=== PATIENT | male | born 1940 | race Caucasian/White ===

== ENCOUNTER → 2022-10-01 | Outpatient (CLI) | payer OTHER | END | disposition home or self-care (01) | LOC: RAH 10:46 | PROVIDERS: ATTEND Internal Medicine | DX: M19.011 Primary osteoarthritis, right shoulder (principal); M75.101 Unspecified rotator cuff tear or rupture of right shoulder, not specified as traumatic | CPT/HCPCS: 73030 ==

== ENCOUNTER → 2023-07-23 | Outpatient (CLI) | payer OTHER | END | disposition home or self-care (01) | LOC: RAH 11:08 | PROVIDERS: ATTEND Neurological Surgery | DX: M48.54XA Collapsed vertebra, not elsewhere classified, thoracic region, initial encounter for fracture (principal); M54.31 Sciatica, right side; M54.50 Low back pain, unspecified; M47.816 Spondylosis without myelopathy or radiculopathy, lumbar region; M48.07 Spinal stenosis, lumbosacral region; M51.36 Other intervertebral disc degeneration, lumbar region | CPT/HCPCS: 72148 ==

== ENCOUNTER 2024-08-19 10:47 | Emergency (ER) | payer OTHER ==
[~2024-08-19] VITALS: Ht 172.7 cm; Wt 71.2 kg
[2024-08-19 12:45] LABS: BASOPHILS # (AUTO) 0.04 K/uL (0.00-0.20); BASOPHILS % (AUTO) 0.5 % (0.0-5.0); EOSINOPHILS # (AUTO) 0.01 K/uL (0.00-0.70); EOSINOPHILS % (AUTO) 0.1 % (0.0-8.0); HEMATOCRIT 38.3 % (42-54); IMMATURE GRANULOCYTE ABSOLUTE 0.08 K/uL (0-1); LYMPHOCYTES # (AUTO) 0.3 K/uL (1.0-4.8); LYMPHOCYTES % (AUTO) 3.8 % (21.0-51.0); MEAN CORPUSCULAR HEMOGLOBIN 34.9 pg (27.0-33.0); MEAN CORPUSCULAR HGB CONC 33.4 g/dL (32.0-36.0); MEAN CORPUSCULAR VOLUME 104.4 fL (79-99); MONOCYTES # (AUTO) 0.6 K/uL (0.1-1.0); MONOCYTES % (AUTO) 7.4 % (3.0-13.0); NEUTROPHILS # (AUTO) 7.4 K/uL (1.8-7.7); NEUTROPHILS % (AUTO) 87.3 % (40.0-77.0); PLATELET COUNT (AUTO) 205 K/uL (130-400); RED BLOOD CELL COUNT(AUTO) 3.67 MIL/uL (4.50-6.20); RED CELL DISTRIBUTION WIDTH 13.2 % (11.0-15.5); WHITE BLOOD COUNT (AUTO) 8.5 K/uL (4.8-10.8)
[2024-08-19 12:53] LABS: CREATININE 0.9 mg/dL (0.5-1.3); POTASSIUM 4.3 mmol/L (3.5-5.1)
--- NOTE | 2024-08-19 13:07 | ERN ---
General Chief Complaint: Mechanical Fall Stated Complaint: RT HIP PAIN S/P FALL 4 DAYS AGO Time Seen by MD: 10:48 Source: patient History of Present Illness Initial Comments Patient is an 84-year-old gentleman coming in complaining of right hip pain. Per patient he has strain do right he had four days ago pain since then. But states this patient also states that he had back surgery secondary to another time and he was ago. Allergies: Coded Allergies: No Known Drug Allergies (Unverified Allergy, Unknown, 08/19/24) Past Medical History Past Medical History: High Cholesterol, Hypertension Medical History Other: PSORIASIS Past Surgical History: Other ROS Dictation CONSTITUTIONAL: No chills, no fever, no weakness, no diaphoresis, no malaise. HEAD/FACE: No signs of trauma. EENT: No eye pain, no blurred vision, no tearing, no double vision, no ear pain, no ear discharge, no nose pain, no nasal congestion, no throat pain, no throat swelling, no mouth pain. RESPIRATORY: No cough, no orthopnea, no SOB, no stridor, no wheezing. CARDIOVASCULAR: No chest pain, no edema, no palpitations, no syncope. GASTROINTESTINAL/ABDOMINAL: No abdominal pain, no constipation, no diarrhea, no nausea, no vomiting. GENITOURINARY: No abnormal discharge, no dysuria, no frequent urination, no hematuria. No complaints of pain in the genitals. MUSCULOSKELETAL: No back pain, no gout, no joint pain, no joint swelling, muscle pain, muscle stiffness, no neck pain. INTEGUMENTARY: No change in color, no change in hair/nails, no dryness, no lesion, no lumps, no rash. NEUROLOGICAL/PSYCH: No anxiety, not depressed, no emotional problem, no headache, no numbness, no pre-existing deficit, no history of seizures, no tremors, no weakness. HEMATOLOGIC/LYMPHATIC: Not anemic, no history of blood clots, no apparent bleeding, no bruising, glands not swollen. All Systems Negative, Except as Noted. Physical Exam Physical Exam Dictation VITAL SIGNS: Reviewed. GENERAL APPEARANCE: Alert, oriented x3, no acute distress, obese. HEAD AND FACE: Non-traumatic. EYES: PERRL, pink conjunctivas, eyelid no trauma, anterior chamber clear. EARS: Pinnas intact and no signs of trauma or erythema. Ear canals clear and no discharge. TMs no erythema. NOSE: No discharge, no bleeding. OROPHARYNX: Mouth normal, teeth no caries, tongue pink. Pharynx clear, no erythema. Tonsils no exudates, no abscesses noted. Mucous membrane moist. NECK: Supple, non-tender, no thyromegaly, no masses, no JVD, no bruits. BREAST: Deferred. CHEST: No tenderness, no crepitus, no paradoxical movement, no retractions. LUNGS: Clear, well-ventilated, symmetric, no rales, no wheezing, no rhonchi, no stridor, good breath sounds bilaterally. HEART: Regular rate, regular rhythm, no murmur, no gallops. VASCULAR: No peripheral edema. ABDOMEN: Soft, positive bowel sounds, nondistended, no guarding, nontender, no rebound, no masses no hepatomegaly, no splenomegaly, no Gonzales's sign, no hernias. RECTAL: Deferred. GENITAL: Deferred. NEUROLOGICAL: Normal speech, gross motor function intact, gross sensory function intact. MUSCULOSKELETAL: Neck nontender, full range of motion, back nontender, full range of motion. EXTREMITIES: Nontender, full range of motion. Right hip pain on palpation Results Laboratory and Microbiology Lab and Micro Result Laboratory Tests Test 08/19/24 12:20 White Blood Count 8.5 K/uL (4.8-10.8) Red Blood Count 3.67 MIL/uL (4.50-6.20) L Hemoglobin 12.8 g/dL (14.0-18.0) L Hematocrit 38.3 % (42-54) L Mean Corpuscular Volume 104.4 fL (79-99) H Mean Corpuscular Hemoglobin 34.9 pg (27.0-33.0) H Mean Corpuscular Hemoglobin Concent 33.4 g/dL (32.0-36.0) Red Cell Distribution Width 13.2 % (11.0-15.5) Platelet Count 205 K/uL (130-400) Mean Platelet Volume 10.1 fL (7.5-10.5) Immature Granulocyte % (Auto) 0.9 % (0-1) Neutrophils (%) (Auto) 87.3 % (40.0-77.0) H Lymphocytes (%) (Auto) 3.8 % (21.0-51.0) L Monocytes (%) (Auto) 7.4 % (3.0-13.0) Eosinophils (%) (Auto) 0.1 % (0.0-8.0) Basophils (%) (Auto) 0.5 % (0.0-5.0) Neutrophils # (Auto) 7.4 K/uL (1.8-7.7) Lymphocytes # (Auto) 0.3 K/uL (1.0-4.8) L Monocytes # (Auto) 0.6 K/uL (0.1-1.0) Eosinophils # (Auto) 0.01 K/uL (0.00-0.70) Basophils # (Auto) 0.04 K/uL (0.00-0.20) Absolute Immature Granulocyte (auto 0.08 K/uL (0-1) Nucleated Red Blood Cells 0.0 % (0.0-0.19) White Cell Morphology Comment See comments Sodium Level 139 mmol/L (136-145) Potassium Level 4.3 mmol/L (3.5-5.1) Chloride Level 98 mmol/L (101-111) L Carbon Dioxide Level 29 mmol/L (21-32) Blood Urea Nitrogen 17 mg/dL (7-18) Creatinine 0.9 mg/dL (0.5-1.3) Glomerular Filtration Rate Calc 84 mL/min (>90) Random Glucose 100 mg/dL (70-105) Total Calcium 9.2 mg/dL (8.5-10.1) Labs Reviewed?: Yes EKG/XRAY/US/CT/MRI CT Scan Comment [place] [id number] [address] [id number] IMAGING REPORT Signed PATIENT: GITA RODRIGUEZ MR#: [id number] : 1940 SEX: M AGE: 84 LOCATION: [facility] ORDER 58 STATUS: REG ER REPORT#: [id number] SERVICE 58 REASON: rlq pain ORDERING PHYSICIAN: AMA MYRICK MD PROCEDURE: ABD PEL W - CT ABDOMEN/PELVIS W/CONTRAST CT ABDOMEN WITH CONTRAST. CT PELVIS WITH CONTRAST INDICATION: Right lower abdominal pain TECHNIQUE: Routine transaxial images using 5 mm slice thickness were obtained after the intravenous infusion of 75 mL of Omnipaque 350 without adverse effects. Oral contrast was not administered. Rectal contrast was not administered. Coronal and sagittal reformatted images acquired for interpretation. CT was performed with one or more of the following dose reduction techniques: Automated exposure control, adjustment of the mA and/or kV according to patient size, or use of iterative reconstruction technique. COMPARISON: None FINDINGS: ABDOMEN: Heart size is normal. Coronary arterial wall calcific plaque noted. Trace right greater than left pleural fluid with subjacent passive opacities. The liver is normal in size and smooth in contour without lesions or biliary duct dilation. The spleen is normal in size without lesions. Miniscule splenic calcifications likely related to prior granulomatous disease process. The gallbladder appears normal. The pancreas appears normal without pancreatic duct dilation. The adrenal glands appear normal. 1.1 cm simple cyst at the upper pole of the right kidney. Additional miniscule simple cysts scattered throughout both kidneys. 0.3 cm nonobstructing calculus at the midportion of the left kidney. Cortical nephrograms are symmetric and normal in appearance bilaterally. No evidence for intra-abdominal free air or organized fluid collection. No retrocrural, intraabdominal, or retroperitoneal lymphadenopathy identified. Mild calcific plaque is noted along the abdominal aortic and iliac vessel holland without aneurysmal dilation or dissection. PELVIS: No evidence for free air or organized pelvic fluid collection. No significant pelvic adenopathy detected. Moderate proximal colonic stool burden. Terminal ileum appears normal. The appendix appears normal. 5.3 cm aggregate of two adjacent diverticula arises posteriorly to the right off the floor of the urinary bladder, and smaller left-sided diverticula measuring 1.9 cm contains layering calcifications with only punctate within the larger diverticulum on the right. The urinary bladder appears unremarkable. Hyperextension injury at the T10-T11 level, the disc space which is widened anteriorly up to 1.7 cm, and transverse fracture line courses through the inferior T10 vertebral body on the right and also through the superior T11 vertebral body on the left with extension into the posterior elements. Moderate to severe central canal stenosis noted at the same level, and intraspinal swelling and/or hemorrhage may be present. Chronic moderate to severe T12 vertebral body compression deformity. Bilateral sacroiliac joint fusion. IMPRESSION: 1. Hyperextension injury at the T10-T11 level, the disc space which is widened anteriorly up to 1.7 cm, and transverse fracture line courses through the inferior T10 vertebral body on the right and also through the superior T11 vertebral body on the left with extension into the posterior elements. Moderate to severe central canal stenosis noted at the same level, and intraspinal swelling and/or hemorrhage may be present. 2. Subcentimeter nonobstructing left renal stone. 5.3 cm aggregate of two adjacent diverticula arises posteriorly to the right off the floor of the urinary bladder, and smaller left-sided diverticula measuring 1.9 cm contains layering calcifications with only punctate within the larger diverticulum on the right. 3. Trace right greater than left pleural effusions with subjacent passive atelectasis. DICTATED BY: CARISSA DURHAM MD DATE: 08/19/24 1625 ELECTRONICALLY SIGNED BY: CARISSA DURHAM MD DATE: 08/19/24 1633 [facility] MDM: Differential diagnosis: Chronic back pain with surgery in the past, osteoarthritis of the hips, kidney stone, Patient is a an 84-year-old male coming in to be evaluated for right hip pain. Patient states that the pain has been ongoing for one week. He states that he has had similar pain like that in the past but recently got worse. CT was performed to rule out any abdominal pathology. Patient does have chronic changes of the spine and patient did disclose that he had surgery in the past. Long with this patient also was found have kidney stones and bladder diverticula . Patient also was found with increased stool burden suggestive constipation and hips seem osteoarthritic. Patient will be discharged in stable condition with diagnosis of osteoarthritis of the hips as well as constipation. ED Course Orders Procedure Category Date Status Time Cbc With Differential LAB 08/19/24 Complete 11:10 Basic Metabolic Panel LAB 08/19/24 Complete 11:10 Ct Abdomen/Pelvis CT 08/19/24 Resulted W/Contrast 12:59 Iohexol (Omnipaque) PHA 08/19/24 Complete 13:24 Current Medications Medications (Trade) Dose Ordered Sig/Suki Route PRN Reason Start Time Stop Time Status Last Admin Dose Admin Iohexol (Omnipaque) 75 ml STK-MED ONCE IV 08/19/24 13:24 08/19/24 13:24 DC Vital Signs Date Time Temp Pulse Resp B/P (MAP) Pulse Ox O2 Delivery O2 Flow Rate FiO2 08/19/24 15:37 98.1 100 16 148/82 95 Room Air* 0 21 08/19/24 10:48 98.1 100 16 148/82 95 Room Air 0 DX & DISP Disposition: Discharge Departure Impression: 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 TAKE MEDICATIONS DIRECTED HERE IN THE EMERGENCY ROOM. OKAY TO CONTINUE HOME MEDICATIONS UNLESS OTHERWISE DISCUSSED DURING YOUR VISIT IN THE EMERGENCY ROOM TODAY. RETURN TO YOUR NEAREST EMERGENCY ROOM IF SYMPTOMS WORSEN OR IF THERE IS NO IMPROVEMENT. CALL 911 IF YOU NEED IMMEDIATE ASSISTANCE. TAKE TYLENOL [id number] NEEDED AND IF NO CONTRAINDICATIONS ARE PRESENT. INCREASE ORAL HYDRATION. A WOUND CULTURE OR URINE CULTURE WAS ORDERED HERE IN THE EMERGENCY ROOM DEPARTMENT PLEASE FOLLOW-UP WITH PRIMARY CARE PROVIDER AND ADVISE THEM TO GET REPEAT PORTS FROM OUR FACILITY. IF YOU HAD ANY MARTINEZ WRAP/SPLINTS THAT WERE APPLIED HERE, PLEASE DO NOT REMOVE THEM UNTIL YOU SEE YOUR PRIMARY CARE OR SPECIALTY. Referrals: Referrals: VELSAQUEZ GROSSMAN MD (PCP) Time of Disposition: 16:49 AMA MYRICK MD Aug 19, 2024 13:07
--- NOTE | 2024-08-19 13:22 | NUR ---
PATIENT IN ER LOBBY: PENDING IV SITE & CONSENT FOR CT EXAM. ER CHARGE NURSE SHEILA NOTIFIED.
[2024-08-19] MEDS ORDERED: IOHEXOL-350 75 ML VIAL IV ONE (13:24)
[2024-08-19 15:37] VITALS: BP 148/82; PULSE 100; RESP 16; TEMP 98.1; O2SAT 95
--- NOTE | 2024-08-19 16:33 | HMCIMG ---
CT ABDOMEN WITH CONTRAST. CT PELVIS WITH CONTRAST INDICATION: Right lower abdominal pain TECHNIQUE: Routine transaxial images using 5 mm slice thickness were obtained after the intravenous infusion of 75 mL of Omnipaque 350 without adverse effects. Oral contrast was not administered. Rectal contrast was not administered. Coronal and sagittal reformatted images acquired for interpretation. CT was performed with one or more of the following dose reduction techniques: Automated exposure control, adjustment of the mA and/or kV according to patient size, or use of iterative reconstruction technique. COMPARISON: None FINDINGS: ABDOMEN: Heart size is normal. Coronary arterial wall calcific plaque noted. Trace right greater than left pleural fluid with subjacent passive opacities. The liver is normal in size and smooth in contour without lesions or biliary duct dilation. The spleen is normal in size without lesions. Miniscule splenic calcifications likely related to prior granulomatous disease process. The gallbladder appears normal. The pancreas appears normal without pancreatic duct dilation. The adrenal glands appear normal. 1.1 cm simple cyst at the upper pole of the right kidney. Additional miniscule simple cysts scattered throughout both kidneys. 0.3 cm nonobstructing calculus at the midportion of the left kidney. Cortical nephrograms are symmetric and normal in appearance bilaterally. No evidence for intra-abdominal free air or organized fluid collection. No retrocrural, intraabdominal, or retroperitoneal lymphadenopathy identified. Mild calcific plaque is noted along the abdominal aortic and iliac vessel holland without aneurysmal dilation or dissection. PELVIS: No evidence for free air or organized pelvic fluid collection. No significant pelvic adenopathy detected. Moderate proximal colonic stool burden. Terminal ileum appears normal. The appendix appears normal. 5.3 cm aggregate of two adjacent diverticula arises posteriorly to the right off the floor of the urinary bladder, and smaller left-sided diverticula measuring 1.9 cm contains layering calcifications with only punctate within the larger diverticulum on the right. The urinary bladder appears unremarkable. Hyperextension injury at the T10-T11 level, the disc space which is widened anteriorly up to 1.7 cm, and transverse fracture line courses through the inferior T10 vertebral body on the right and also through the superior T11 vertebral body on the left with extension into the posterior elements. Moderate to severe central canal stenosis noted at the same level, and intraspinal swelling and/or hemorrhage may be present. Chronic moderate to severe T12 vertebral body compression deformity. Bilateral sacroiliac joint fusion. IMPRESSION: 1. Hyperextension injury at the T10-T11 level, the disc space which is widened anteriorly up to 1.7 cm, and transverse fracture line courses through the inferior T10 vertebral body on the right and also through the superior T11 vertebral body on the left with extension into the posterior elements. Moderate to severe central canal stenosis noted at the same level, and intraspinal swelling and/or hemorrhage may be present. 2. Subcentimeter nonobstructing left renal stone. 5.3 cm aggregate of two adjacent diverticula arises posteriorly to the right off the floor of the urinary bladder, and smaller left-sided diverticula measuring 1.9 cm contains layering calcifications with only punctate within the larger diverticulum on the right. 3. Trace right greater than left pleural effusions with subjacent passive atelectasis.
[2024-08-19] MEDS ORDERED: LACT10SO85 PO (16:50)
== END 2024-08-19 17:47 | disposition home or self-care (01) ==
LOC: EDH 10:47
DX: M16.11 Unilateral primary osteoarthritis, right hip (principal); K59.00 Constipation, unspecified; N32.3 Diverticulum of bladder; E78.00 Pure hypercholesterolemia, unspecified; I10 Essential (primary) hypertension
CPT/HCPCS: 99285; 74177; 80048; 85025; 36415; Q9967

== ENCOUNTER 2024-08-23 20:53 | Emergency (ER) | payer OTHER ==
[~2024-08-23] VITALS: Ht 175.3 cm; Wt 73.5 kg
[~2024-08-23 20:53] MED LIST: LACT10SO85 PO
--- NOTE | 2024-08-23 21:46 | NUR ---
PT CARE ASSUMED AT THIS TIME. PT PLACED IN ED ROOM 15
[2024-08-23 21:50] LABS: BASOPHILS # (AUTO) 0.06 K/uL (0.00-0.20); BASOPHILS % (AUTO) 0.9 % (0.0-5.0); EOSINOPHILS # (AUTO) 0.27 K/uL (0.00-0.70); EOSINOPHILS % (AUTO) 3.9 % (0.0-8.0); HEMATOCRIT 39.6 % (42-54); IMMATURE GRANULOCYTE ABSOLUTE 0.04 K/uL (0-1); LYMPHOCYTES # (AUTO) 0.8 K/uL (1.0-4.8); LYMPHOCYTES % (AUTO) 11.2 % (21.0-51.0); MEAN CORPUSCULAR HEMOGLOBIN 34.9 pg (27.0-33.0); MEAN CORPUSCULAR HGB CONC 32.8 g/dL (32.0-36.0); MEAN CORPUSCULAR VOLUME 106.2 fL (79-99); MONOCYTES # (AUTO) 0.9 K/uL (0.1-1.0); MONOCYTES % (AUTO) 12.6 % (3.0-13.0); NEUTROPHILS % (AUTO) 70.8 % (40.0-77.0); PLATELET COUNT (AUTO) 270 K/uL (130-400); RED BLOOD CELL COUNT(AUTO) 3.73 MIL/uL (4.50-6.20); RED CELL DISTRIBUTION WIDTH 13.5 % (11.0-15.5)
[2024-08-23 21:59] LABS: CREATININE 0.9 mg/dL (0.5-1.3); POTASSIUM 4.2 mmol/L (3.5-5.1)
[2024-08-23 22:04] LABS: ALBUMIN 3.4 g/dL (3.5-5.0); BILIRUBIN,DIRECT 0.1 mg/dL (0.0-0.3); BILIRUBIN,TOTAL 0.3 mg/dL (0.2-1.0); TOTAL PROTEIN, SERUM 7.3 g/dL (6.0-8.3)
[2024-08-23] MEDS ORDERED: IOHEXOL 350 MG/ML 100ML INFUS..BTL IV ONE (23:08)
--- NOTE | 2024-08-23 23:11 | NUR ---
ATTEMPT TO GRAB CONSENT FOR CT SCAN AT THIS TIME. PT REQUESTED TIME TO THINK ABOUT GETTING THE SCAN DONE AND SIGNING THE CONSENT FORM. PT EDUCATED ABOUT THE IMPORTANCE OF THE SCAN. PT VERBILIZED UNDERSTANDING OF THE EDUCATION. ED PA MADE AWARE.
--- NOTE | 2024-08-24 00:29 | HMCIMG ---
ABD 1VW HISTORY: Constipation COMPARISON: None FINDINGS: A frontal projection of the abdomen was obtained. A nonspecific bowel gas pattern is seen. Fecal material is seen in the colon. Degenerative changes of the thoracolumbar spine are noted. Findings may be related to constipation. IMPRESSION: 1. A nonspecific bowel gas pattern is seen.
[2024-08-24] MEDS: acetaMINOPHEN 500 MG TABLET PO ONE (00:51)
[2024-08-24] MEDS: MAGNESIUM CITRATE 296 ML SOLUTION PO ONE ×2 (00:52→05:57)
--- NOTE | 2024-08-24 00:53 | NUR ---
PT PLACED IN BRIEF AT THIS TIME
--- NOTE | 2024-08-24 02:46 | ERN ---
General Chief Complaint: Constipation Stated Complaint: NO BM X 5 DAYS Time Seen by MD: 20:58 Time Seen by Midlevel: 20:58 Source: patient History of Present Illness Initial Comments 84-year-old male who presents to the emergency department by EMS due to constipation. Patient reports he was seen here on 08/19/2024 for the same chief complaint and has not had a bowel movement in five days, but is able to pass gas. Patient reports severe abdominal pain worsening with any movement. Denies any nausea, vomiting, fevers or further associated symptoms. Allergies: Coded Allergies: No Known Drug Allergies (Unverified Allergy, Unknown, 08/19/24) Home Meds Active Scripts Lactulose (Lactulose) 10 Gram/15 Ml Solution, 30 ML PO BID for constipation, #500 ML 0 Refills Prov:AMA MYRICK MD 08/19/24 Past Medical History Past Medical History: High Cholesterol, Hypertension Medical History Other: PSORIASIS Past Surgical History: Other ROS Dictation Constitutional: Negative for fever,chills, and weight loss Eyes: Negative for injury, pain,redness, and discharge ENT: Negative for injury,pain or swelling Cardiovascular: Negative for chest pain, palpitations, and edema Respiratory: Negative for shortness of breath, cough, and wheezing, Abdomen/GI: Positive for constipation, abdominal pain Negative for nausea, vomiting, diarrhea Back: Negative for injury and pain : Negative for painful urination, bleeding or discharge MS/Extremity: Negative for injury and deformity Skin: Negative for rash, and discoloration Neuro: Negative for headache, weakness, numbness, tingling, and seizure Psych: Negative for suicide ideation, homicidal ideation, and hallucinations Physical Exam Physical Exam Dictation General: awake, alert, no acute distress Head/Face: Normocephalic, atraumatic Eyes: PERRL, EOMI, normal conjuctiva ENT: oral cavity clear, oral mucosa moist Neck: Supple, normal range of motion Cardiovascular: RRR, normal S1/S2 Respiratory: CTAB, no respiratory distress, no rales or wheezes Abdomen: Soft, mild generalized tenderness, mild distention, no guarding or rebound. Skin: Warm, dry, normal turgor, no rash MS/Extremity: Pulses equal, no cyanosis, neurovascular intact, FROM Neuro: COAx4, GCS 15, strength 5/5, CN 2-12 intact, normal cerebellar exam Psych: Normal behavior, mood, and affect normal Results Laboratory and Microbiology Lab and Micro Result Laboratory Tests Test 08/23/24 21:42 White Blood Count 7.0 K/uL (4.8-10.8) Red Blood Count 3.73 MIL/uL (4.50-6.20) L Hemoglobin 13.0 g/dL (14.0-18.0) L Hematocrit 39.6 % (42-54) L Mean Corpuscular Volume 106.2 fL (79-99) H Mean Corpuscular Hemoglobin 34.9 pg (27.0-33.0) H Mean Corpuscular Hemoglobin Concent 32.8 g/dL (32.0-36.0) Red Cell Distribution Width 13.5 % (11.0-15.5) Platelet Count 270 K/uL (130-400) Mean Platelet Volume 9.3 fL (7.5-10.5) Immature Granulocyte % (Auto) 0.6 % (0-1) Neutrophils (%) (Auto) 70.8 % (40.0-77.0) Lymphocytes (%) (Auto) 11.2 % (21.0-51.0) L Monocytes (%) (Auto) 12.6 % (3.0-13.0) Eosinophils (%) (Auto) 3.9 % (0.0-8.0) Basophils (%) (Auto) 0.9 % (0.0-5.0) Neutrophils # (Auto) 5.0 K/uL (1.8-7.7) Lymphocytes # (Auto) 0.8 K/uL (1.0-4.8) L Monocytes # (Auto) 0.9 K/uL (0.1-1.0) Eosinophils # (Auto) 0.27 K/uL (0.00-0.70) Basophils # (Auto) 0.06 K/uL (0.00-0.20) Absolute Immature Granulocyte (auto 0.04 K/uL (0-1) Nucleated Red Blood Cells 0.0 % (0.0-0.19) Red Blood Cell Morphology See comments Sodium Level 141 mmol/L (136-145) Potassium Level 4.2 mmol/L (3.5-5.1) Chloride Level 100 mmol/L (101-111) L Carbon Dioxide Level 37 mmol/L (21-32) H Blood Urea Nitrogen 21 mg/dL (7-18) H Creatinine 0.9 mg/dL (0.5-1.3) Glomerular Filtration Rate Calc 84 mL/min (>90) Random Glucose 121 mg/dL (70-105) H Total Calcium 9.8 mg/dL (8.5-10.1) Total Bilirubin 0.3 mg/dL (0.2-1.0) Direct Bilirubin 0.1 mg/dL (0.0-0.3) Aspartate Amino Transf (AST/SGOT) 30 U/L (10-37) Alanine Aminotransferase (ALT/SGPT) 34 U/L (12-78) Alkaline Phosphatase 58 U/L (50-136) Total Protein 7.3 g/dL (6.0-8.3) Albumin 3.4 g/dL (3.5-5.0) L Lipase 43 U/L (16-77) Labs Reviewed?: Yes EKG/XRAY/US/CT/MRI X-RAY Comment REASON: Constipation, rule out obstruction ORDERING PHYSICIAN: TREY DELGADO PROCEDURE: ABD 1VW - ABD 1VW ABD 1VW HISTORY: Constipation COMPARISON: None FINDINGS: A frontal projection of the abdomen was obtained. A nonspecific bowel gas pattern is seen. Fecal material is seen in the colon. Degenerative changes of the thoracolumbar spine are noted. Findings may be related to constipation. IMPRESSION: 1. A nonspecific bowel gas pattern is seen. DICTATED BY: MARE RICO MD DATE: 08/24/24 0021 MDM MDM: Differential diagnosis: Rationale: ED course delayed due to patient refusing multiple study/treatments and continuing to be symptomatic. Patient refused CT abdomen and pelvis, also refused digital disimpaction. Patient continued with abdominal pain, distention, constipation. Patient finally able to have a bowel movement, symptoms improved. There are no social concerns with this patient. I independently interpreted the test that were performed, results were reviewed by me and considered findings on radiology if ordered. Medical management and examination interpretation discussions were had by me with other qualified healthcare professionals as indicated for the patient's care. Patient was given a bottle of magnesium citrate and has a attempted numerous times to evacuate his bowels unsuccessfully. He would like to go home. I will discharge him with some more Mag citrate. ED Course Orders Procedure Category Date Status Time Cbc With Differential LAB 08/23/24 Complete 21:12 Basic Metabolic Panel LAB 08/23/24 Complete 21:12 Hepatic Function Panel LAB 08/23/24 Complete 21:12 Lipase LAB 08/23/24 Complete 21:12 Urinalysis LAB 08/23/24 Logged W/Microscopic 21:12 Iohexol (Omnipaque) PHA 08/23/24 Complete 23:08 Abd 1vw RAD 08/23/24 Resulted 23:14 Magnesium Citrate PHA 08/24/24 Complete (Magnesium Citrate) 00:30 Acetaminophen 500mg PHA 08/24/24 Complete Tab (Tylenol 500mg T 01:00 Current Medications Medications (Trade) Dose Ordered Sig/Suki Route PRN Reason Start Time Stop Time Status Last Admin Dose Admin Acetaminophen (TYLenol 500MG TAB) 1,000 mg ONCE ONCE PO 08/24/24 01:00 08/24/24 01:01 DC 08/24/24 00:51 Iohexol (Omnipaque) 35,000 mg STK-MED ONCE IV 08/23/24 23:08 08/23/24 23:08 DC Magnesium Citrate (Magnesium Citrate) 296 ml ONCE ONCE PO 08/24/24 00:30 08/24/24 00:31 DC 08/24/24 00:52 Vital Signs Date Time Temp Pulse Resp B/P (MAP) Pulse Ox O2 Delivery O2 Flow Rate FiO2 08/23/24 23:50 74 18 162/85 98 Room Air* 0 08/23/24 22:35 69 17 143/71 99 Room Air* 0 08/23/24 21:50 98.2 81 13 158/84 99 Room Air* 0 08/23/24 20:54 98.1 95 16 165/78 98 0 DX & DISP Disposition: Discharge Departure Impression: Primary Impression: Constipation Condition: Stable Additional Instructions: Discharge home. Rest. Follow up with primary care in 24 hours. Return to the ER for any acute changes or worsening symptoms. If any medications were prescribed take as directed. Okay to continue home medications unless otherwise discussed during your visit in the emergency room today. Patient was also advised to follow-up with primary care physician in 1 to 2 days for continued monitoring. Referrals: VELASQUEZ GROSSMAN MD (PCP) I performed the substantive portion of the visit. I have reviewed and personally made and approve the management plan that is documented in the notes by myself or the [facility]. I acknowledge full responsibility for the patient's management plan. TREY DELGADO Aug 24, 2024 02:46 MAXI BAIN MD Aug 24, 2024 05:02
--- NOTE | 2024-08-24 04:56 | NUR ---
PT PLACED ON BEDSIDE COMMODE AT THIS TIME
[2024-08-24 05:53] VITALS: BP 139/99; PULSE 92; RESP 17; TEMP 97.8; O2SAT 99
== END 2024-08-24 06:27 | disposition home or self-care (01) ==
LOC: EDH 20:53
DX: K59.00 Constipation, unspecified (principal); E78.00 Pure hypercholesterolemia, unspecified; I10 Essential (primary) hypertension
CPT/HCPCS: 36415; 74018; 80048; 80076; 83690; 85025; 99285; Q9967